=== PATIENT | female | born 1970 | race Caucasian/White ===

== ENCOUNTER 2017-11-14 12:14 | Emergency (ER) | payer BC ==
[2017-11-14] MEDS ORDERED: NS 0.9% 1000 ML* 1,000 ML IV ONE (12:30)
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
[2017-11-14 13:08] VITALS: BP 100/64
== END 2017-11-14 13:39 | disposition home or self-care (01) ==
LOC: UCCORT 12:14
DX: R42 Dizziness and giddiness (principal); T50.905A Adverse effect of unspecified drugs, medicaments and biological substances, initial encounter; R61 Generalized hyperhidrosis; G43.909 Migraine, unspecified, not intractable, without status migrainosus; E07.9 Disorder of thyroid, unspecified; Z88.8 Allergy status to other drugs, medicaments and biological substances; Z91.040 Latex allergy status; Z79.899 Other long term (current) drug therapy; Y92.9 Unspecified place or not applicable
CPT/HCPCS: 93005; 96360; 99212; G0463

== ENCOUNTER 2018-10-20 10:36 | Emergency (ER) | payer BC ==
[2018-10-20 11:11] VITALS: BP 118/79
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
== END 2018-10-20 12:52 | disposition home or self-care (01) ==
LOC: UCCORT 10:36
DX: S16.1XXA Strain of muscle, fascia and tendon at neck level, initial encounter (principal); S43.402A Unspecified sprain of left shoulder joint, initial encounter; V40.0XXA Car driver injured in collision with pedestrian or animal in nontraffic accident, initial encounter; Y92.9 Unspecified place or not applicable; R51 Headache
CPT/HCPCS: 70450; 72125; 99212; G0463